=== PATIENT | male | born 1945 | race Caucasian/White ===

== ENCOUNTER 2023-11-20 07:30 | Outpatient (RCR) | payer MEDICARE, OTHER, SELFPAY | END 2023-12-18 09:49 | disposition home or self-care (01) | PROVIDERS: PCP Student in an Organized Health Care Education/Training Program; Visit Provider Student in an Organized Health Care Education/Training Program | DX: M54.50 Low back pain, unspecified (principal); G89.29 Other chronic pain; Z51.89 Encounter for other specified aftercare | CPT/HCPCS: 97110; 97140; 97161 ==

== ENCOUNTER 2024-07-22 09:15 | Outpatient (CLI) | payer MEDICARE, OTHER, SELFPAY | END 2024-07-22 09:16 | disposition home or self-care (01) | LOC: INJ CL 09:19 | PROVIDERS: PCP Student in an Organized Health Care Education/Training Program; Visit Provider Family Medicine | DX: M54.16 Radiculopathy, lumbar region (principal); M51.369 Other intervertebral disc degeneration, lumbar region without mention of lumbar back pain or lower extremity pain | CPT/HCPCS: 62323; J0702; Q9966 ==

== ENCOUNTER 2024-11-18 08:15 | Outpatient (RCR) | payer MEDICARE, OTHER, SELFPAY | END 2025-03-18 23:59 | disposition home or self-care (01) | PROVIDERS: PCP Student in an Organized Health Care Education/Training Program; Visit Provider Family Medicine | DX: M47.816 Spondylosis without myelopathy or radiculopathy, lumbar region (principal); M54.16 Radiculopathy, lumbar region; Z51.89 Encounter for other specified aftercare | CPT/HCPCS: 97110; 97140; 97162 ==

== ENCOUNTER 2025-06-06 20:18 | Emergency (ER) | payer MEDICARE, OTHER, SELFPAY ==
--- OUTSIDE RECORDS SUMMARY | 2015-02-10 03:28 | XMS_ITS | Continuity of Care Document ---
Author Organization [facility] Address [address] [place] [address] Phone Care Team Providers Care Med Surg Nurse Name Role Phone Luis CH PTKimberli Unavailable Unavailable Procedures Procedure Date Neuromuscular Re-education Manual Therapy Phys Therap Eval Neuromuscular Re-education Manual Therapy Mobility: Walking & Moving Around, Curre nt Mobility: Walking & Moving Around, Goal Manual Therapy Therapeutic Procedure Manual Therapy Therapeutic Procedure Neuromuscular Re-education Manual Therapy No Charge Therap 1/> Areas/15 Min; Exerc 06 Therap 1/> Area/15 Min; Balnc/ 06 Therap 1/> Areas/15 Min; Exerc 05 Therap 1/> Area/15 Min; Balnc/ 05 Applic Modal 1/> Areas; Ultras 05 Man Ther Tech-1/> Regions-ea 05 Therap 1/> Areas/15 Min; Exerc 05 Therap 1/> Area/15 Min; Balnc/ 05 Applic Modal 1/> Areas; Ultras 05 Therap 1/> Areas/15 Min; Exerc 05 Man Ther Tech-1/> Regions-ea 1 05 Applic Modal 1/> Areas; Ultras 05 Therap 1/> Areas/15 Min; Exerc 05 Man Ther Tech-1/> Regions-ea 1 05 Therap 1/> Areas/15 Min; Exerc 05 Therap 1/> Area/15 Min; Balnc/ 05 Therap 1/> Areas/15 Min; Exerc 05 Therap 1/> Area/15 Min; Balnc/ 05 Applic Modal 1/> Areas; Ultras 05 Therap 1/> Areas/15 Min; Exerc 05 Man Ther Tech-1/> Regions-ea 1 05 Therap 1/> Areas/15 Min; Exerc 05 Therap 1/> Area/15 Min; Balnc/ 05 Applic Modal 1/> Areas; Ultras 05 Therap 1/> Areas/15 Min; Exerc 05 Man Ther Tech-1/> Regions-ea 1 05 Applic Modal 1/> Areas; Ultras 05 Man Ther Tech-1/> Regions-ea 1 05 Applic Modal 1/> Areas; Ultras 05 Man Ther Tech-1/> Regions-ea 05 Therap Activities 1-- Ea 05 Inj Not Lytic-epidur; Cerv/tho 05 Epidurography Rad S&i Depomedrol 80mg Marcaine 30ml Lidocaine 50 Cc Omnipaque Up To 299 Mg Epidural Needle Loss Of Ressistance Syringe Epidural Tray Applic Modal 1/> Areas; Ultras 05 Therap 1/> Areas/15 Min; Exerc 05 Man Ther Tech-1/> Regions-ea 05 Applic Modal 1/> Areas; Ultras 05 Therap 1/> Areas/15 Min; Exerc 05 Man Ther Tech-1/> Regions-ea 05 Applic Modal 1/> Areas; Ultras 05 Therap 1/> Areas/15 Min; Exerc 05 Man Ther Tech-1/> Regions-ea 05 Applic Modal 1/> Areas; Ultras 05 Therap 1/> Areas/15 Min; Exerc 05 Man Ther Tech-1/> Regions-ea 05 Applic Modal 1/> Areas; Ultras 05 Therap 1/> Areas/15 Min; Exerc 05 Man Ther Tech-1/> Regions-ea 05 Phys Therap Eval Man Ther Tech-1/> Regions-ea 1 05 Offic/outpt E&m New Mod-hi 45 5 Advance Directives Directive Yes / No Effective Date File Name No Information Encounters Encounter Description Practice Location Reason(s) For Visit Diagnoses Date Provider Providers Copied on Encounter [facility], [address], [place], [place], [address], [place] tel:[phone] [facility] 7390 No Information Smith PT Kimberli. [address] [place], [place], [address], [place]. tel:[phone] Referring Provider: Gerry Salguero MD, [address] [place], [address]. tel:[phone] [facility], [address], [place], [place], [address], tel:[phone] [facility] 7390 No Information [facility] Kimberli. [address], [place], [place], [address], [place]. tel:[phone] Referring Provider: Gerry Salguero MD, [address] [place], [address]. tel:[phone] [facility], [address], [place], [place], [address], [place] tel:[phone] [facility] 7390 No Information 5 Luis CH Kimberli. [address], [place], [place], [id number], [place]. tel:[phone] Referring Provider: Gerry Salguero MD, [address] [facility], [place], [address]. tel:[phone] [facility], [address], [place], [place], [address], [place] tel:[phone] [facility] 7390 No Information 4 Mac Jeanine. [address], [address], [place], [place], [address], [place]. tel:[phone] Referring Provider: Gerry Salguero MD, [address] [facility], [place], [address]. tel:[phone] [facility], [address], [place], [place], [address], [place] tel:[phone] [facility] 7390 No Information 4 Melo Patrizia. [address], [address], [place], [place], [address], [place]. tel:[phone] Referring Provider: Gerry Salguero MD, [address] [facility], [place], [address]. tel:[phone] [facility], [address], [place], [place], [address], [place] tel:[phone] [facility] 7390 No Information 4 Mac Jeanine. [address], [address], [place], [place], [address], [place]. tel:[phone] Referring Provider: Gerry Salguero MD, [address] [facility], [place], [address]. tel:[phone] [facility], [address], [place], [place], [address], [place] tel:[phone] Zoila Marceloa [facility] 7390 No Information 4 Mac Solorzano. [address], [address], [place], [place], [address], [place]. tel:[phone] Referring Provider: Gerry Salguero MD, [address] [facility], [place], [address]. tel:[phone] [facility], [address], [place], [place], [address], [place] tel:[phone] [facility] No Information 6 No Information Referring Provider: Jack Watson MD, [address], [place], [address]. tel:[phone] [facility], [address], [place], [place], [address], [place] tel:[phone] [facility] No Information 5 No Information Referring Provider: Jack Watson MD, [address] [facility] [address], [place], [address]. tel:[phone] [facility], [address], [place], [place], [address], [place] tel:[phone] [facility] No Information 5 Norma Maxwell. [address], [address], [place], [place], [address], [place]. tel:[phone] Referring Provider: Jack Watson MD, [address] [facility] [address], [place], [address]. tel:[phone] [facility], [address], [place], [place], [address], [place] tel:[phone] [facility] No Information Dec-0 8-200 5 No Information Referring Provider: Jack Watson MD, [address] [facility] [facility] [address], [place], [address]. tel:[phone] [facility], [address], [place], [place], [address], [place] tel:[phone] [facility] No Information 7200 5 O Hotto Alissa. [address], [address], [place], [address], [place]. tel:[phone] Referring Provider: Jack Watson MD, [address] [facility] [address], [place], [address]. tel:[phone] [facility], [address], [place], [address], [place] tel:[phone] [facility] No Information 0 5 O Hotto Alissa. [address], [address], [place], [address], [place]. tel:[phone] Referring Provider: Jack Watson MD, [address] [facility] [address], [place], [address]. tel:[phone] [facility], [address], [place], [address], [place] tel:[phone] [facility] No Information 200 5 No Information Referring Provider: Jack Watson MD, [address] [facility] [address], [place], [address]. tel:[phone] [facility], [address], [place], [address], [place] tel:[phone] [facility] No Information 200 5 No Information Referring Provider: Jack Watson MD, [address] [facility] [address], [place], [address]. tel:[phone] [facility], [address], [place], [place], [address], [place] tel:[phone] [facility] No Information 6-200 5 O Hotto Alissa. [address], [address], [place], [address], [place]. tel:[phone] Referring Provider: Jack Watson MD, [address] [facility] [address], [place], [address]. tel:[phone] [facility], [address], [place], [place], [address], [place] tel:[phone] [facility] No Information 0-200 5 No Information Referring Provider: Jack Watson MD, [address] [facility] [address], [place], [address]. tel:[phone] [facility], [address], [place], [address], [place] tel:[phone] [facility] No Information 9-200 5 O Hotto Alissa. [address], [place], [address], [place]. tel:[phone] Referring Provider: Jack Watson MD, [address] [facility] [address], [place], [address]. tel:[phone] [facility], [address], [place], [address], [place] tel:[phone] [facility] No Information 2-200 5 O Hotto Alissa. [address], [facility] [address], [place], [address], [place]. tel:[phone] Referring Provider: Jack Watson MD, [address] [facility] [address], [place], [address]. tel:[phone] [facility], [address], [place], [address], [place] tel:[phone] [facility] No Information 6200 5 O Hotto Alissa. [address], [address], [place], [place], [address], [place]. tel:[phone] Referring Provider: DELMI LEONARD. [facility], [address], [place], [place], [address], [place] tel:[phone] [facility] No Information Sep-0 8-200 5 Yvon Garrett. [address], [place], [place], [address], [place]. tel:[phone] Referring Provider: Gerry Chaudhry, [address], [place], [address] . tel:[phone] [facility], [address], [place], [place], [address], [place] tel:[phone] [facility] No Information Sep-0 7-200 5 O Hotto Alissa. [address], [address], [place], [place], [address], [place]. tel:[phone] Referring Provider: Gerry Chaudhry, [address], [place], [address] . tel:[phone] [facility], [address], [place], [place], [address], [place] tel:[phone] [facility] No Information 1-200 5 O Hotto Alissa. [address], [address], [place], [place], [address], [place]. tel:[phone] Referring Provider: Gerry Chaudhry, [address], [place], [address] . tel:[phone] [facility], [address], [place], [place], [address], [place] tel:[phone] [facility] No Information 200 5 O Hotto Alissa. [address], [address], [place], [address], [place]. tel:[phone] Referring Provider: Gerry Chaudhry, [address], [place], [address] . tel:[phone] [facility], [address], [place], [place], [address], [place] tel:[phone] [facility] No Information 5 O Hotto Alissa. [address], [address], [place], [address], [place]. tel:[phone] Referring Provider: Gerry Chaudhry, [address], [place], [address] . tel:[phone] [facility], [address], [place], [place], [address], [place] tel:[phone] [facility] No Information 5 O Hotto Alissa. [address], [place], [address], [place]. tel:[phone] Referring Provider: REFERRAL SELF, DELMI. [facility], [address], [place], [place], [address], [place] tel:[phone] [facility] No Information 3200 5 O Hotto Alissa. [address], [address], [place], [address], [place]. tel:[phone] Referring Provider: REFERRAL SELF, DELMI. Offic/outpt E&m New Mod-hi 45 [facility], [address], [place], [place], [address], [place] tel:[phone] [facility] No Information 9-200 5 Yvon Garrett. [address], [place], [address], [place]. tel:[phone] Referring Provider: REFERRAL SELF, DELMI. Family History Family Member Type Diagnosis Age At Onset No Information Payers Payer name Insurance type Covered republican ID Authoriza tion(s) Medicare Part B [id number] [facility] [id number] Social History Type Description Quantity Date Captured Comments Sex Male Smoking Status No Information Chief Complaint And Reason For Visit No Information Reason For Referral Reason For Referral No Information History Of Present Illness Encounter Date Complaint History Of Prese nt Illness No Information Functional Status Date Functional Assessmen t No Information Instructions Date Instruction Additional Infor mation No Information Assessments Type Assessment Date No Information Patient Care Teams Name Effective Dates (start - stop) Status Members No Information
--- OUTSIDE RECORDS SUMMARY | 2025-06-06 20:20 | XMS_ITS | Clinical Summary ---
Author Organization [facility] Address [address] [place] [address] Care Team Providers Care Process Equipment Operator Name Role Phone Elsewhere, Pcp Primary Care Provider Unavailabl e Source Comments Patient records contain information from all sites at [facility]. For routine questions regarding patient records, call [phone] during business hours, M-F 8:00 AM - 5:00 PM Central Time. Record requests for emergency care only can be directed to [phone] at any time.[facility] Allergies Active AllergyReactionsCriticalityNoted DateCommentsBirchOther (see comments) 12/07/2023 other Medications MedicationSigDispense QuantityRefillsLast FilledStart DateEnd DateStatus cetirizine (ZyrTEC) 10 mg tablet Take 1 tablet by mouth every morning.02/02/2017Active acetaminophen (TYLENOL EXTRA STRENGTH ORAL) Take 2 tablets by mouth as needed. Pain.02/02/2017Active lisinopril (PRINIVIL,ZESTRIL) 10 mg tablet Take 1 tablet by mouth every morning.02/02/2017Active sildenafil (VIAGRA) 100 mg tablet Take 0.5 tablets by mouth as needed. Take 1 tablet approximately 1 hour before sexual activity; maximum 1 tablet per day.02/02/2017Active propafenone (RythmoL) 150 mg tablet Take 225 mg by mouth as needed. As needed for A-fib, does not take regularily. Active rosuvastatin (Crestor) 10 mg tablet Take 10 mg by mouth at bedtime.08/05/2023ctive cholecalciferol, vitamin D3, (cholecalciferol) 25 mcg (1,000 Unit) tablet Take 25 mcg by mouth daily.Active aspirin [address] tablet Take 81 mg by mouth daily.04/01/2023ctive diphenhydrAMINE (BenadryL) 25 mg capsule Take 25 mg by mouth every 4 (four) hours as needed.11/29/2022ctive ibuprofen 200 mg tablet Take 200 mg by mouth 3 (three) times a day as needed.11/29/2022ctive ketoconazole (Nizoral) 2 % cream Apply 1 Application topically 2 (two) times a day.09/10/2024tive loratadine (Claritin) 10 mg tablet Take 10 mg by mouth daily.09/14/2024tive finasteride (Proscar) 5 mg tablet TAKE ONE TABLET BY MOUTH ONE TIME DAILY 90 tablet 12/11/2024tive Active Problems ProblemNoted DateDiagnosed DateBenign Prostatic Hyperplasia Hypertrophy With Cedggqkounm36/04/2019 Overview (08/19/2018): Added automatically from request for surgery [id number] Wcmiugaukixk88/18/2017Arrhythmia Overview (09/03/2018): Paroxysmal a-fib, PVC's, PAC's - taking Toprol Resolved Problems ProblemNoted DateDiagnosed DateResolved DateHypertension NOS09/03/2018 Immunizations ImmunizationAdministration DatesNext DueInfluenza Split03/31/2016 Social History Tobacco UseTypesPacks/DayYears UsedDateSmoking Tobacco: NeverPassive Smoke Exposure: NeverSmokeless Tobacco: NeverAlcohol UseStandard Drinks/WeekCommentsNo 0 (1 standard drink = 0.6 oz pure alcohol)Caffeine - noneAHC UtilitiesAnswerDate RecordedIn the past 12 months has the [employer], gas, oil, or water [employer] threatened to shut off services in your home?12/09/2023Humiliation, Afraid, Rape, and Kick questionnaireAnswerDate RecordedWithin the last year, have you been afraid of your partner or ex-partner?No11/22/2022Within the last year, have you been humiliated or emotionally abused in other ways by your partner or ex-partner?No11/22/2022Within the last year, have you been kicked, hit, slapped, or otherwise physically hurt by your partner or ex-partner?No11/22/2022Within the last year, have you been raped or forced to have any kind of sexual activity by your partner or ex-partner?No11/22/2022Hunger Vital SignAnswerDate Recorded Within the past 12 months, you worried that your food would run out before you got the money to buymore.Never true12/09/2023Within the past 12 months, the food you bought just didn't last and you didn't have money to get more.Never true 12/09/2023RAPARE - TransportationAnswerDate RecordedIn the past 12 months, has lack of transportation kept you from medical appointments or from getting medications?No12/09/2023In the past 12 months, has lack of transportation kept you from meetings, work, or from getting things needed for daily living?No 12/09/2023Housing StabilityAnswerDate RecordedWhat is your living situation today?I have a steady place to live12/09/2023Sex and Gender InformationValueDate RecordedSex Assigned at ZazgkJeir09/20/2021 11:28 AM CDTLegal LaiDuvr5012/28/2016 9:25 AM CDTGender IgigvvdqEtal62/25/2018 2:16 PM CDTSexual OrientationStraight 04/11/2018 2:16 PM CDT Last Filed Vital Signs Vital SignReadingTime TakenCommentsBlood Kgyzuvti200/5404 12:15 PM CDT Fbiyw4872 12:20 PM GYWRwodonnmmpo61.5 ??C (97.7 ??F)10/01/2018 9:37 AM CDTRespiratory Gctf157710/01/2018 12:20 PM CDTOxygen Oizzibifjq36%10/01/2018 12:20 PM CDTInhaled Oxygen Concentration--Dvmzrb58.7 kg (180 lb 1.9 oz)10/01/2018 7:24 AM ICLOeivyy173.3 cm (5' 8.23)10/01/2018 7:24 AM CDTBody Mass Index27.2 10/01/2018 7:24 AM CDT Plan of Treatment Health MaintenanceDue DateLast DoneCommentsHepatitis C Dkocqlzad46/09/1946Office Visit for Blood Pressure Check / Re-check1946RSV vaccine - (32-36 weeks) or 50+ years (1 - 1-dose 75+ series)2Depression Screening (Annual PHQ-2)06/18/2024Fall Risk Screen (Annual)5Creatinine Level (Kidney Function Test)/08/2023, 07/11/2023, 11/27/2022, Additional history existsPotassium Level/08/2023, 06/22/2022, 03/28/2022, Additional history existsSodium Level/08/2023, 06/22/2022, 03/28/2022, Additional history existsCOVID-19 Vaccine ( season) /12/2021, 09/16/2021, 04/06/2021, Additional history existsInfluenza Vaccine (#1)/, 05/11/2021, 03/18/2019, Additional history existsDTaP,Tdap,and Td Vaccines (4 - Td or Tdap)/06/2020, 11/30/2018, 12/27/2012, Additional history existsPneumococcal vaccine (50+ years)Szrucudta44/20/2015, 12/08/2011Zoster QhszdyduDzyolbxho38/31/2019, 03/18/2019, 06/22/2012IPV VaccinesAged OutNo longer eligible based on patient's age to complete this topic Procedures Procedure NamePriorityDate/TimeAssociated DiagnosisCommentsCREATININE WITH EGFR, S/SKtfihix74/12/2023 12:19 PM CDT Hematuria Gross SODIUM, S/MDtwopcx75/18/2017 2:36 PM CDT POTASSIUM, S/EOchdmdl53/18/2017 2:36 PM CDT from Last 3 Months or Most Recently Relevant to Health Maintenance Results * Creatinine with Estimated GFR (11/27/2022 12:19 PM CDT)ComponentValueRef Range Test MethodAnalysis TimePerformed AtPathologist SignatureCreatinine0.880.74 - 1.35 mg/dL11/27/2022 1:37 PM CDTDTLEstimated GFR (eGFR)89>=60 mL/min/BSA 11/27/2022 1:37 PM CDTDTLComment: Estimated GFR calculated using the 2020 CKD_EPI creatinine equation. Specimen (Source)Anatomical Location / LateralityCollection Method / Volume Collection TimeReceived TimeBlood (Blood, Venous)11/27/2022 12:19 PM CDT 11/27/2022 12:53 PM CDT Narrative Authorizing ProviderResult TypeResult StatusElise Andres Olvera P.A.-C.LAB BLOOD ADD-ONFinal ResultPerforming OrganizationAddressCity/State/ZIP CodePhone Number [facility] [address] [place] [address], [facility] [address] [place] [address] * Sodium (02/02/2017 2:36 PM CDT)ComponentValueRef RangeTest MethodAnalysis Time Performed AtPathologist SignatureSodium, [id number] - 145 MMOL/[facility]ITALSpecimen (Source)Anatomical Location / LateralityCollection Method / VolumeCollection TimeReceived Time02/02/2017 2:36 PM CDT02/02/2017 2:36 PM CDT Narrative Authorizing ProviderResult TypeResult StatusBroleksandr Trejo M.D., M.H.P.E.LAB BLOOD ADD-ONFinal ResultPerforming OrganizationAddressCity/State/ZIP CodePhone Number [facility] [address] [place] [address], [facility] * Potassium (02/02/2017 2:36 PM CDT)ComponentValueRef RangeTest MethodAnalysis TimePerformed AtPathologist SignaturePotassium, S4.23.6 - 5.2 MMOL/[facility]ITALSpecimen (Source)Anatomical Location / LateralityCollection Method / VolumeCollection TimeReceived Time 02/02/2017 2:36 PM CDT02/02/2017 2:36 PM CDT Narrative Authorizing ProviderResult TypeResult StatusKaity Trejo M.D., M.H.P.E.LAB BLOOD ADD-ONFinal ResultPerforming OrganizationAddressCity/State/ZIP CodePhone Number [facility] [address] from Last 3 Months or Most Recently Relevant to Health Maintenance Insurance * Guarantor: Henry Mcdonald Jr.Account TypeRelation to PatientDate of PhoneBilling AddressPersonal/OdhkdhPjvw43/09/1946 [facility] [place] [address] Care Teams Team MemberRelationshipSpecialtyStart DateEnd Date Elsewhere, Pcp PCP - GeneralInternal Medicine12/07/23
--- OUTSIDE RECORDS SUMMARY | 2025-06-06 20:20 | XMS_ITS | Clinical Summary ---
Author Organization [employer] [facility] Address [address] [place] [address] Care Team Providers Care Lidding Machine Operator Name Role Phone Ernestina Kendrick MD Unavailable Antoinette Erickson Unavailable [phone] Kylah Arias DO Primary Care Provider [phone] Allergies Active AllergyReactionsCriticalityNoted DateCommentsBirchRunny Nose05/03/2018 House DustRunny Nose10/11/2016Pollen ExtractsRunny Nose10/11/2016 Medications MedicationSigDispense QuantityRefillsLast FilledStart DateEnd DateStatus acetaminophen (TYLENOL EXTRA STRGTH) 500 mg tablet Take 1 Tablet (500 mg) by mouth every 6 hours if needed. Max acetaminophen dose: 4000mg in 24 hrs.ctive cholecalciferol, Vitamin D3, (Vitamin D-3) 5,000 unit tab tablet Take by mouth once daily.Active aspirin chewable 81 mg chewable tablet Chew 1 Tablet (81 mg) by mouth once daily with a meal.ctive diphenhydrAMINE (BENADRYL) 25 mg capsule Take 25 mg by mouth.11/29/2022ctive sildenafil citrate (VIAGRA) 100 mg tablet Indications:ED (erectile dysfunction) of organic originTAKE 1 TABLET ONCE DAILY IF NEEDED FOR ERECTILE DYSFUNCTION. TAKE 30 MINUTES TO 4 HOURS BEFORE SEXUAL ACTIVITY. MAX 100 MG PER 24 HOURS 8 Tablet ctive finasteride 5 mg tablet Indications:Benign prostatic hyperplasia with urinary obstructionTake 1 Tablet (5 mg) by mouth once daily in the morning. 90 Tablet 5Active rosuvastatin 10 mg tablet Indications:Hyperlipidemia, unspecified hyperlipidemia typeTake 1 Tablet (10 mg) by mouth at bedtime. 90 Tablet 5Active lisinopriL 10 mg tablet Indications:HypertensionTake 1 Tablet (10 mg) by mouth once daily. 90 Tablet 5Active loratadine 10 mg tablet Indications:Chronic sinusitis, unspecified locationTAKE ONE TABLET BY MOUTH ONE TIME DAILY 90 Tablet 5Active propafenone (RYTHMOL) 300 mg tablet Indications:PAF (paroxysmal atrial fibrillation) (HC)Take one tablet per day NEEDED for afib episodes. 10 Tablet 5Active apixaban (Eliquis) 5 mg tablet Indications:Paroxysmal atrial fibrillation (HC)Take 1 Tablet (5 mg) by mouth two times daily. Start 21 days before the ablation and for 1 month after. 180 Tablet 5Active Active Problems ProblemNoted DateDiagnosed AomgFmiyfsmu07/09/2024Generalized anxiety disorder 05/21/2023Sensorineural hearing loss, ramnxopuu25/01/2022Other specified neoplasms of uncertain behavior of lymphoid, hematopoietic and related tissue 09/16/2021hronic lymphocytic gvdayjef50/01/2022 Overview (07/27/2023): Jul 13, 2023 Entered By: VERNA BYNUM Comment: [facility] f/u Wlfxfucwdp93/05/2021 Overview (04/22/2021): Paroxysmal a-fib, PVC's, PAC's - taking Toprol Hyperplastic colon polyp06/01/2016 Overview (06/01/2016): Colonoscopy 05/2016 polyp, no follow up needed Benign prostatic hyperplasia with urinary rsmrinegrky68/16/2016 Overview (04/22/2021): Added automatically from request for surgery [id number] Lateral epicondylitis of right elbow11/04/20136972Aywsgajethyo73/23/2013Paroxysmal atrial irduaohcjzlw07/11/2012 Overview (06/02/2021): S/p cardiac ablation. Encounters DateTypeDepartmentCare QikgLowukussgkg44/01/2025Telephone [facility] [place] [address] [place] [phone] Jose Alfredo Fung MD Hazcvnc6905/04/2025Telephone [facility] [address] [place] [phone] Sam Velasquez MD Medication Management; Linppkdxy68/13/2025Telephone [facility] [address] [place] [address] Sam Velasquez MD Appointment Request; EP Tvvjuyovn44/12/2025 3:30 PM CSTOffice Visit [facility] [address] [place] [address] Sam Velasquez MD CV Electrophysiology Est (Annual follow up, had about 10 afib episodes since being seen last year. Longest lasting 2.5 hours. Takes propafenone as needed. ) 04/28/2025 9:00 AM CSTOffice Visit [facility] [address] [place] [address] Angela Blankenship MD Follow Up04/28/2025 7:33 AM COMPUTER PROGRAMMING MANAGER - 04/28/2025 11:59 PM CSTHospital Encounter [facility] [address] [place] [address] Angela Blankenship MD Chronic lymphocytic leukemia (HC)04/28/20253499Jwabec39/10/2025Medical Messaging [facility] [address] [place] [address] Kylah Arias, DO Recent visit hand edwxbmxm40/10/2025Orders Only [facility] [address] [place] [address] He, Angela Limon MD <No scans attached>04/24/2025Travelfrom Last 3 Months Immunizations ImmunizationAdministration DatesNext DueCOVID-19 vaccine (Pfizer-BioNTech 30mcg/0.3mL) 12YO+ MALCOLM-SUCROSE PF, MDV04/2COVID-19 vaccine (Pfizer- BioNTech 30mcg/0.3mL) PF, MDV01,06/22/2020Influenza RIV4 (Age 18+ Years) PRESERV FREE03/18/2019Influenza, High-dose Xuxudqhrjcq05/30/2018,04/21/2016, 03/31/2016,04/08/2015Influenza, High-dose Quadrivalent Dsdncahzxce09/22/2022 Influenza, IIV3 (Age >=3 years)05/09/2013,06/05/2011,05/06/2010,03/18/2004, 07/14/2000Influenza, NHZ553/,03/05/2014Influenza, Inactivated IIV3 (Age 65+ Years) Preserv Free04/18/2017Pneumococcal Poly,23-Valent (Pneumovax) 12/08/2011Pneumococcal conj 13-Valent (Prevnar 13)08/07/2014Td (Age >=7 Years) 03/18/2004Tdap106/18/2020,11/30/2018,12/27/2012Tuberculin (PPD)04/04/2019, 03/31/2019,12/27/2017Zoster (Shingrix-RZV, recombinant)06/17/2019,03/18/2019 Zoster (Zostavax-ZVL, live)06/22/2012 Family History Medical HistoryRelationNameCommentsHypertensionFatherdeceased/ age 73Stroke FatherOtherMotherALS/ age 76RelationNameStatusCommentsFatherMother Social History Tobacco UseTypesPacks/DayYears UsedDateSmoking Tobacco: NeverSmokeless Tobacco: Never Tobacco Cessation:Counseling Given: Yes Comments:no exposure Alcohol UseStandard Drinks/WeekCommentsYes0 (1 standard drink = 0.6 oz pure alcohol)occasionalPHQ-2AnswerDate RecordedPHQ-2 TOTAL FONTY396Social ConnectionsAnswerDate RecordedDo you often feel lonely or isolated from those around you?Financial Resource StrainAnswerDate RecordedDifficulty of Paying Living Dicsbvuv415/07/2025Difficulty of Paying Living ExpensesNot on file 07/25/2024Food InsecurityAnswerDate RecordedDo you worry your food will run out before you are able to buy more?Transportation NeedsAnswerDate RecordedDoes lack of transportation keep you from medical appointments?1 07/25/2024Does lack of transportation keep you from work, meetings or getting things that you need?Housing StabilityAnswerDate RecordedWhat is your housing situation today?UtilitiesAnswerDate RecordedDo you have trouble paying for utilities (for example, heat, electricity, water, phone)?1 07/25/2024Sex and Gender InformationValueDate RecordedSex Assigned at BirthMale 09/03/2020 7:34 PM CDTLegal CqxWkxd5107/01/2012 5:47 AM CSTGender IdentityMale 09/03/2020 7:34 PM CDTSexual KkkacumnagiAlubjrzx31/23/2021 9:40 AM CSTOccupation IndustryJob Start DateJob End 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 for chronic pain clinicNot on fileNot on fileNot on fileNot on fileNot on fileNot on fileNot on file Last Filed Vital Signs Vital SignReadingTime TakenCommentsBlood Dvyqndtv803/6611 3:26 PM COMPUTER PROGRAMMING MANAGER Sghqe108904/29/2025 3:26 PM LESJiyucbuiiua28.2 ??C (97.1 ??F)04/28/2025 9:00 AM CSTRespiratory Awhe830111/21/2023 10:54 AM CDTOxygen Dvadxjyxqj43%04/29/2025 3:26 PM CSTInhaled Oxygen Concentration--Qnbbkk63.7 kg (178 lb)04/29/2025 3:26 PM COMPUTER PROGRAMMING MANAGER Atrfjy584 cm (5' 8.5)04/29/2025 3:26 PM CSTBody Mass Index26.6704/29/2025 3:26 PM COMPUTER PROGRAMMING MANAGER Plan of Treatment DateTypeDepartmentCare Team (Latest Contact Info)Rlyweuifuvd73/06/2026 12:30 PM CSTAppointment [facility] [address] [place] [address] Sam Velasquez MD [address] [address] 08/03/2025 10:15 AM CSTOrders Only [facility] [address] [place] [address] [place], [place] 10/14/2025 8:00 AM CDTOffice Visit [facility] [address] [place] [address] Sam Velasquez MD [address] [address] 10/19/2025 9:20 AM CDTOffice Visit [facility] [address] [address] 10/19/2025 10:30 AM CDTOffice Visit [facility] [address] [place] [address] La Bright PA [address] [place] [address] Health MaintenanceDue DateLast DoneCommentsRSV vaccine for adults or (1 - 1-dose 75+ series)2COVID-19 vaccine series ( season) 51, 09/16/2021, 04/06/2021, Additional history existsInfluenza Vaccine (#1)5107/11/2020, 03/18/2019, 04/16/2018, Additional history existsDepression screening for age 12+6011/04/2024, 10/30/2023, 09/26/2022, Additional history existsMedicare Wellness for age 65+11/05/2025 11/04/2024, 10/30/2023, 09/26/2022, Additional history existsBMI (ht and wt on same day) for age 18+6106/29/2024, 04/28/2025, 11/04/2024, Additional history existsTetanus zceftax93/06/2020, 11/30/2018, 12/27/2012, Additional history existsPneumococcal series for age 50+Kqzxayrbe12/20/2015, 12/08/2011Hepatitis C screening for age 18-58Ukhbpvqid69/28/2018Zoster (shingles) series for age 50+Qpiztotnw51/31/2019, 03/18/2019, 06/22/2012 Hepatitis B series for 19+Aged OutNo longer eligible based on patient's age to complete this topic Procedures Procedure NamePriorityDate/TimeAssociated DiagnosisCommentsEKG 12 LEADRoutine 04/29/2025 3:24 PM COMPUTER PROGRAMMING MANAGER Paroxysmal atrial fibrillation (HC) CWS PATH REVIEW COHJGPXSEVBjxsr58/11/2025 7:39 AM COMPUTER PROGRAMMING MANAGER Chronic lymphocytic leukemia (HC) RED CELL DXZQXYNWAUVaras57/11/2025 7:39 AM COMPUTER PROGRAMMING MANAGER Chronic lymphocytic leukemia (HC) PLATELET JTRUOTXZOexmc18/11/2025 7:39 AM COMPUTER PROGRAMMING MANAGER Chronic lymphocytic leukemia (HC) MANUAL NYIDSAVAZXBQArlrd22/11/2025 7:39 AM COMPUTER PROGRAMMING MANAGER Chronic lymphocytic leukemia (HC) CBC WITH AUTO NMYQVIMGRCLDCnosh88/11/2025 7:39 AM COMPUTER PROGRAMMING MANAGER Chronic lymphocytic leukemia (HC) CBC WITH AUTO PZYCLNBZFDMNBjrzh33/11/2025 7:39 AM COMPUTER PROGRAMMING MANAGER Chronic lymphocytic leukemia (HC) ANTI UGIBjmtlck11/28/2018 8:35 AM COMPUTER PROGRAMMING MANAGER Need for hepatitis C screening test from Last 3 Months or Most Recently Relevant to Health Maintenance Results * EKG 12 LEAD (04/29/2025 3:24 PM COMPUTER PROGRAMMING MANAGER)ComponentValueRef RangeTest MethodAnalysis TimePerformed AtPathologist SignatureInterpretationSinus bradycardia Otherwise normal ECG When compared with ECG of 09-Apr-2024 14:17, No significant change was found Ventricular Suhj37PPAJlykse Hxhu81HHZA-W Flhzluss547auHVT Bibzgxjt87cuLY847vpBJu 379msP Obyb97ywhubrvU Qnzo78hxdbivpO Brlm18yciyfftFxgvjeya (Source)Anatomical Location / LateralityCollection Method / VolumeCollection TimeReceived Time 04/29/2025 3:24 PM CST04/29/2025 5:15 PM COMPUTER PROGRAMMING MANAGER Narrative Authorizing ProviderResult TypeResult StatusSam Velasquez MDEKG ORDFinal Result * CWS PATH REVIEW HEMATOLOGY (04/28/2025 7:39 AM COMPUTER PROGRAMMING MANAGER)ComponentValueRef RangeTest MethodAnalysis TimePerformed AtPathologist SignaturePATH COMMENTReviewed 05/01/2025 12:33 PM CSTIN[facility] LABORATORYCENTRAL LABORATORYComment: Reviewed by Inez Burgos MT, MS (ASCP) on 04/30/2025Specimen (Source) Anatomical Location / LateralityCollection Method / VolumeCollection Time Received TimeBloodBLOOD SPECIMEN / UnknownVenipuncture / Jcjbqrx2004/28/2025 7:39 AM CST04/28/2025 7:46 AM COMPUTER PROGRAMMING MANAGER Narrative Authorizing ProviderResult TypeResult StatusAngela Blankenship MDLABORATORYFinal ResultPerforming OrganizationAddressCity/State/ZIP CodePhone Number [facility]ORY[facility] [address] [place] [address], * (ABNORMAL) CBC WITH AUTO DIFFERENTIAL (04/28/2025 7:39 AM COMPUTER PROGRAMMING MANAGER)ComponentValue Ref RangeTest MethodAnalysis TimePerformed AtPathologist SignatureWHITE BLOOD COUNT59.3(HH)4.5 - 11.0 thou/cu mm04/28/2025 8:30 AM [facility]-CENTRAL LABORATORYRED BLOOD COUNT4.424.30 - 5.90 mil/cu mm 04/28/2025 8:30 AM [facility] LABORATORYHEMOGLOBIN 13.4(L)13.5 - 17.5 g/dL04/28/2025 8:30 AM [facility] NEFDXRDESBJOWJFPIWYP53.337.0 - 53.0 %04/28/2025 8:30 AM [facility] ZDBMKPQEQJOPS4512 - 100 fL04/28/2025 8:30 AM [facility] BOGMIXFCCZGEA14.326.0 - 34.0 pg04/28/2025 8:30 AM [facility] DGTGZPAIFKAWIX66.432.0 - 36.0 g/dL 04/28/2025 8:30 AM [facility] AQVQJLXIMCTOW26.811.5 - 15.5 %04/28/2025 8:30 AM [facility] LABORATORY PLATELET LXLMV278331 - 440 thou/cu mm04/28/2025 8:30 AM [facility] DFLAHKZOHABZV83.56.5 - 11.0 fL04/28/2025 8:30 AM [facility] LABORATORYNRBC0.0%04/28/2025 8:30 AM [facility] LABORATORYABS NRBC0.0thou /cu mm04/28/2025 8:30 AM [facility] LABORATORYSpecimen (Source)Anatomical Location / LateralityCollection Method / VolumeCollection TimeReceived Time BloodBLOOD SPECIMEN / UnknownVenipuncture / Ctrllxe7104/28/2025 7:39 AM COMPUTER PROGRAMMING MANAGER 04/28/2025 7:46 AM COMPUTER PROGRAMMING MANAGER Narrative Authorizing ProviderResult TypeResult StatusFiraina Blankenship MDHEMATOLOGYFinal ResultPerforming OrganizationAddressCity/State/ZIP CodePhone Number [facility] [address] [place] [address], * RED CELL MORPHOLOGY (04/28/2025 7:39 AM COMPUTER PROGRAMMING MANAGER)ComponentValueRef RangeTest Method Analysis TimePerformed AtPathologist SignatureRBC COMMENTRBC morphology appears normalRBC morphology appears normal, RBC morphology within normal limits for newborns.04/28/2025 8:30 AM [facility]ST[facility]-CENTRAL LABORATORYSpecimen (Source)Anatomical Location / LateralityCollection Method / VolumeCollection TimeReceived TimeBloodBLOOD SPECIMEN / UnknownVenipuncture / Gslzuuo7404/28/2025 7:39 AM CST04/28/2025 7:46 AM COMPUTER PROGRAMMING MANAGER Narrative Authorizing ProviderResult TypeResult StatusAngela Blankenship MDHEMATOLOGYFinal ResultPerforming OrganizationAddressCity/State/ZIP CodePhone Number [facility] [address] * PLATELET ESTIMATE (04/28/2025 7:39 AM COMPUTER PROGRAMMING MANAGER)ComponentValueRef RangeTest Method Analysis TimePerformed AtPathologist SignaturePLATELET ESTIMATEAdequate Adequate, No kktdyjcq53/11/2025 8:30 AM [facility] LABORATORYSpecimen (Source)Anatomical Location / LateralityCollection Method / VolumeCollection TimeReceived TimeBloodBLOOD SPECIMEN / UnknownVenipuncture / Qukjenr8404/28/2025 7:39 AM CST04/28/2025 7:46 AM COMPUTER PROGRAMMING MANAGER Narrative Authorizing ProviderResult TypeResult StatusAngela Blankenship MDHEMATOLOGYFinal ResultPerforming OrganizationAddressty/State/ZIP CodePhone Number [facility] [address] * (ABNORMAL) MANUAL DIFFERENTIAL (04/28/2025 7:39 AM COMPUTER PROGRAMMING MANAGER)ComponentValueRef Range Test MethodAnalysis TimePerformed AtPathologist Signature% NEUTROPHILS7.0% 04/28/2025 8:30 AM [facility]-CENTRAL LABORATORY% LYMPHOCYTES 90.0%04/28/2025 8:30 AM [facility]AL LABORAT[facility]% MONOCYTES3.0%04/28/2025 8:30 AM [facility]AL LAB[facility]AT[facility] % EOSINOPHILS0.0%04/28/2025 8:30 AM [facility]EN[facility]AL LAB[facility]% BASOPHILS0.0%04/28/2025 8:30 AM [facility]- CENTRAL LABORATORYNEUTROPHILS ABSOLUTE4.21.7 - 7.0 thou/cu mm04/28/2025 8:30 AM [facility] LABORATORYLYMPHOCYTES DCZLENIG49.4(H) 0.9 - 2.9 thou/cu mm04/28/2025 8:30 AM [facility]-CENTRAL LABORATORYMONOCYTES ABSOLUTE1.8(H)<0.9 thou/cu mm04/28/2025 8:30 AM [facility] LABORATORYEOSINOPHILS ABSOLUTE0.0<0.5 thou/cu mm 04/28/2025 8:30 AM [facility] LABORATORYBASOPHILS ABSOLUTE0.0<0.3 thou/cu mm04/28/2025 8:30 AM [facility] CENTRAL LABORATORYSpecimen (Source)Anatomical Location / LateralityCollection Method / VolumeCollection TimeReceived TimeBloodBLOOD SPECIMEN / Unknown Venipuncture / Iufmwak9504/28/2025 7:39 AM CST04/28/2025 7:46 AM COMPUTER PROGRAMMING MANAGER Narrative Authorizing ProviderResult TypeResult StatusFiraina Blankenship MDHEMATOLOGYFinal ResultPerforming OrganizationAddressCity/State/ZIP CodePhone Number [facility] [address] [place] [address], * ANTI HCV [41403.2] (05/15/2018 8:35 AM COMPUTER PROGRAMMING MANAGER)ComponentValueRef RangeTest Method Analysis TimePerformed AtPathologist SignatureHEPATITIS C ANTIBODYNon-Reactive Non-Gllctaki81/28/2018 5:07 PM [facility] Comment:Antibodies to HCV not detected; does not exclude the possibility of exposure to HCV.Specimen (Source)Anatomical Location / LateralityCollection Method / VolumeCollection TimeReceived TimeBloodBLOOD SPECIMEN / Unknown Venipuncture / Hwgyclt1105/15/2018 8:35 AM CST05/15/2018 8:40 AM COMPUTER PROGRAMMING MANAGER Narrative Authorizing ProviderResult TypeResult StatusDavid Chepe Salguero MDSEND OUTSFinal ResultPerforming OrganizationAddressty/State/ZIP CodePhone Number [facility] [address] from Last 3 Months or Most Recently Relevant to Health Maintenance Insurance MemberSubscriberPlan / Payer (Effective 2020-Present)Name:Henry Mcdonald Jr. Relation to Subscriber:EmployeeName:[employer] Date of :1999 (Home) Address: [address] [place] [address] Payer ID:Not on file Group ID:Not on file Type:Not on file Address: [address] [place] [address] * Guarantor: Henry Mcdonald Jr.Account TypeRelation to PatientDate of BirthPhone Billing VxnrxdgZedeiuPcuw47/09/1946 [address] [place] [address] Advance Directives TypeDate RecordedPatient RepresentativeExplanationHealthcare Directive01/27/2013 10:22 AMAMSSM [facility], 03/04/2010Healthcare Directive * Full Code (Latest Code Status on File) Date ActivatedDate FufisehpnioAouvqdcs81/7/2021 2:44 PM05/25/2021 1:56 PMQuestion AnswerCommentsCode Status Discussion:* Not Discussed Care Teams Team MemberRelationshipSpecialtyStart DateEnd Date Kylah Arias DO [address] [place] [id number] PCP - GeneralFamily Practice09/23/20 Ernestina Kendrick MD Ophthalmology Surgery12/08/11 Antoinette Erickson AuD Audiology01/10/13
[2025-06-06 20:31] VITALS: BP 169/93; PULSE 97; RESP 18; TEMP 36.7; O2SAT 97; BMI 28.1
--- NOTE | 2025-06-06 22:24 | ED.FALL ---
HPI - Fall General Time Seen by Provider: 22:24 Date Seen: 06/06/25 Chief Complaint: Fall/Minor Trauma Stated Complaint: L side Flan Pain Time Seen by Provider: 06/06/25 21:29 Source: patient and RN notes reviewed Mode of arrival: ambulatory Limitations: no limitations History of Present Illness HPI Narrative: This 79-year-old male is ambulatory into the ED with concerns of left flank/lower chest wall pain after a fall yesterday. He was taking his dog for a walk yesterday, slipped and fell on the ice. He believes he landed on his left lower back and left side. Here originally really did not have too much discomfort. He did not hit his head, there was no loss of consciousness. He was somewhat sore with change of positions, coughing but not just regular breathing. He went to cross his legs, crosses left leg over his right and that significantly increased his pain, he felt it made him going to muscle spasm today. He is not noting any nausea vomiting, no abdominal pain. He started on Eliquis on the 02 of June for an upcoming ablation on June 23. He also has CLL. He was worried about bleeding from being on the Eliquis. He also has a history of atrial fibrillation, hypertension. He has no pain going down into his legs, when he crossed his left leg it actually caused left flank and left chest wall spasm and discomfort. Related Data Home Medications ?Medication ?Instructions ?Recorded ?Confirmed aspirin 81 mg tablet,delayed 81 mg PO QDAY 04/25/23 04/25/23 release (Adult Aspirin Regimen) diphenhydramine HCl 25 mg tablet 25 mg PO QHS PRN 04/25/23 04/25/23 (Benadryl Allergy) lisinopril 10 mg tablet 10 mg PO QDAY 04/25/23 04/25/23 rosuvastatin 10 mg tablet (Crestor) 10 mg PO QDAY 04/25/23 04/25/23 Previous Rx's ?Medication ?Instructions ?Recorded albuterol sulfate 90 mcg/actuation 2 puff inhalation Q4-6H PRN 04/25/23 aerosol inhaler shortness of breath or wheezing #8.5 grams azithromycin 250 mg tablet See Rx Instructions PO .COMPLEX #6 04/25/23 tabs benzonatate 200 mg capsule 200 mg PO QHS PRN cough #14 caps 04/25/23 hydrocodone 5 mg-acetaminophen 325 1 tab PO HS PRN pain #7 tabs 06/07/25 mg tablet Allergies Allergy/AdvReac Type Severity Reaction Status Date / Time No Known Drug Allergies Allergy Verified 04/25/23 08:56 Review of Systems Status of ROS: Reports: 6 or more systems reviewed and unremarkable except as noted in History and below [facility] Medical History Atrial fibrillation ?I48.91 - Unspecified atrial fibrillation (ICD-10) Surgical History S/P ablation of atrial fibrillation ?Z98.890 - Other specified postprocedural states (ICD-10) ?Z86.79 - Personal history of other diseases of the circulatory system (ICD-10) Social History Smoking Status: Never smoker Do you use any of these nicotine containing products: None Second hand tobacco smoke exposure: No How often do you have a drink containing alcohol: never AUDIT-C Alcohol total score: 0 Non-prescribed substance use: denies use Exam Const: Vital Signs, click to edit/add: Vital Signs - 24 hr 06/06/25 20:31 06/06/25 22:46 06/06/25 22:49 Temperature 98.0 F Pulse Rate [Pulse Oximeter] 97 68 Respiratory Rate 18 18 Blood Pressure [Ri ght Upper Arm] 169/93 H 165/89 H Pulse Oximetry 97 97 97 Oxygen Delivery Me thod Room Air Room Air This 79-year-old male is lying in bed in exam room 3, he is alert, interactive, no apparent distress when resting. He does seem to have some discomfort with position changes. Inspection of his back and chest reveal no ecchymosis, no traumatic change. He has no midline tenderness of his neck, neck is full range of motion. No midline tenderness over the rest of his back. He does have tenderness over the left lower chest wall and into the left flank area but there is no ecchymosis or bruising, again no traumatic change noted. Lungs are clear, good air entry, no wheezing or crackles, no tachypnea, no accessory muscle use. There is no crepitus of the chest wall. He has left CVA tenderness. On palpation of his abdomen, he does have some mild discomfort on palpation of the left upper quadrant but no rebound or guarding, no masses noted. Abdominal exam benign elsewhere without any tenderness. Documenting provider has reviewed patient's vital signs: yes Course Course ED Course: We certainly can manage muscle spasm and pain but we need to rule out significant traumatic pathology like intra-abdominal bleeding, rib fractures, lung complications from chest wall trauma. He is understanding of my request to do chest abdomen pelvis with IV contrast to look at these very issues. Will do some basic labs on him as well. If we have no concerning issues we will certainly discuss plan for pain management and symptom control for him. Right now he is stable, not requesting anything at this time, interested in seeing the imaging results. Reevaluation(s) Time of Reevaluation #1: 00:08 Reevaluation #1: Have reviewed his CT findings with him, he has a nondisplaced left 9th rib fracture. His hemoglobin is good at 13.6, reviewed his white blood count. He had non incidental findings, we briefly went over these, he was given a copy of his CT. We did discuss follow-up for the pulmonary nodules and repeat imaging if felt necessary or needed after discussion with his primary provider. We had a discussion about pain management, he had visual hallucinations with tramadol before. He would like to stay away from oxycodone, really does not want to use that. He has tolerated Vicodin in the past with a neck injury, had no problems with that. We unfortunately have no narcotics outside of tramadol in [facility] at this time. Will order 1 tablet of Vicodin 5/325, will send this home with him to take tonight and then send additional Vicodin in for nocturnal pain management. During the day, he will use Tylenol 1000 mg twice, the Vicodin at nighttime to help with sleep. He is aware of splinting technique, we did review that. We discussed signs and symptoms for return for complications of rib fractures. Vital Signs Vital signs: Initial Vital Signs Temperature 98.0 F 06/06/25 20:31 Temperature Source Temporal Artery Scan 06/06/25 20:31 Pulse Rate 97 06/06/25 20:31 Pulse Rhythm Regular 06/06/25 20:31 Respiratory Rate 18 06/06/25 20:31 Blood Pressure 169/93 H 06/06/25 20:31 Blood Pressure Mean 118 H 06/06/25 20:31 Blood Pressure Position Standing 06/06/25 20:31 Pulse Oximetry 97 06/06/25 20:31 Oxygen Delivery Method Room Air 06/06/25 20:31 Vital Signs Temperature 98.0 F 06/06/25 20:31 Pulse Rate 97 06/06/25 20:31 Respiratory Rate 18 06/06/25 20:31 Blood Pressure 169/93 H 06/06/25 20:31 Pulse Oximetry 97 06/06/25 20:31 Oxygen Delivery Method Room Air 06/06/25 20:31 Temperature 98.0 F 06/06/25 20:31 Pulse Rate 68 06/06/25 22:49 Respiratory Rate 18 06/06/25 22:49 Blood Pressure 165/89 H 06/06/25 22:49 Pulse Oximetry 97 06/06/25 22:49 Oxygen Delivery Method Room Air 06/06/25 22:49 MDM - Fall Lab Data Attestation: I reviewed the patient's lab results. Labs: Lab Results 06/06/25 Range/Units 22:49 WBC 67.88 H* (4.50-11.00) K/uL RBC 4.33 (4.30-5.90) m/uL Hgb 13.6 (13.5-17.5) gm/dL Hct 40.2 (37.0-53.0) % MCV 93 (80-100) fL MCH 31 (26-34) pg MCHC 34 (32-36) gm/dL RDW Coeff of Joseph 13.7 (11.5-15.5) % Plt Count 198 (140-440) K/uL Neut % (Auto) Not Reportable Lymph % (Auto) Not Reportable [place] % (Auto) Not Reportable Eos % (Auto) Not Reportable Baso % (Auto) Not Reportable Neut # (Auto) Not Reportable Lymph # (Auto) Not Reportable [place] # (Auto) Not Reportable Eos # (Auto) Not Reportable Baso # (Auto) Not Reportable Neutrophils % (Manual) 9.0 L (42.0-72.0) % Lymphocytes % (Manual) 70.0 H (20.0-44.0) % Monocytes % (Manual) 17.0 H (0-11) % Eosinophils % (Manual) 2.0 (0.0-7.0) % Basophils % (Manual) 2.0 (0.0-3.0) % Abs Neuts (Manual) 6.10 (1.70-7.00) K/uL Lymphocytes # (Manual) 47.50 H (0.90-2.90) K/uL Monocytes # (Manual) 11.50 H (0.00-0.90) K/uL Eosinophils # (Manual) 1.40 H (0.00-0.50) K/uL Basophils # (Manual) 1.40 H (0.00-0.30) K/uL Platelet Estimate Appears Adequate (Adequate) Sodium 137 (135-149) mmol/L Potassium 4.1 (3.6-5.1) mmol/L Chloride 104 (96-114) mmol/L Carbon Dioxide 27 (20-32) mmol/L Anion Gap 6 L (7-15) mEq/L BUN 28 (7-30) mg/dL Creatinine 0.7 (0.5-1.5) mg/dL Estimated Creat Clear 58.90 Estimated GFR 94 ml/min Glucose 121 H (60-115) mg/dL Calcium 8.9 (8.4-10.6) mg/dL Imaging Data CT Chest/Ab/Pelvis: Attestation: I have reviewed the pertinent imaging results. Radiologist's impression: Patient: [facility] Facility:?[facility] Patient ID:?[id number] Site Patient ID:?[id number]. Site :?[id number] Study:?CT-Chest/Abd/Pelvis 91CC ISOVUE 370-06/06/2025 11:33:38 PM Ordering Physician:Lupe Ayers Final Report: INDICATION: Trauma with left-sided chest and abdominal/flank pain. TECHNIQUE: CT chest, abdomen and pelvis acquired 91 cc Isovue 370 IV contrast. COMPARISON: None. FINDINGS: CHEST: Cardiovascular structures: No cardiomegaly or pericardial effusion. Main pulmonary artery normal in caliber. No thoracic aortic aneurysm. Mediastinum and feng: No suspicious lymphadenopathy. No pneumomediastinum. Lungs and pleura: No focal consolidation. No pleural effusion or pneumothorax. Patent central airways. Right lower lobe pulmonary nodule measuring 7 mm (series 3, image 72). Left lower lobe nodule measuring 4 mm (image 73). Additional scattered smaller bilateral pulmonary nodules. Right upper lobe cyst. Chest wall and axilla: No suspicious chest wall mass or fluid collection. Mildly prominent bilateral axillary lymph nodes do not meet size criteria for enlargement. Bones: Nondisplaced acute fracture of the left posterior 9th rib (series 2, image 73). ABDOMEN AND PELVIS: Liver: Unremarkable. Gallbladder and bile ducts: Unremarkable. Pancreas: Unremarkable. Spleen: Unremarkable. Adrenal glands: Unremarkable. Kidneys: Symmetric renal enhancement. No hydronephrosis or hydroureter. No obstructing calculi. GI tract: No bowel obstruction. Colonic diverticulosis without acute diverticulitis. Moderate stool burden. No CT evidence of acute appendicitis. Vascular structures: No abdominal aortic aneurysm. Grossly patent vasculature. Lymph nodes: Numerous prominent mesenteric lymph nodes. Numerous prominent retroperitoneal lymph nodes, none of which meet size criteria for enlargement. Peritoneum/Retroperitoneum/Abdominal Wall: Mild central mesenteric haziness/fat stranding. No ascites or pneumoperitoneum. Small fat containing left inguinal hernia. No acute abdominal wall abnormality. Pelvic Organs: Normal bladder. Unremarkable prostate and seminal vesicles. Bones and superficial soft tissues: Left posterior 9th rib fracture, as above. IMPRESSION: 1. Acute, nondisplaced fracture of the left posterior 9th rib. 2. Otherwise no acute intrathoracic or intra-abdominal/pelvic pathology. 3. Numerous mildly prominent mesenteric lymph nodes with mild central mesenteric haziness/fat stranding, nonspecific, but may be seen in the setting of sclerosing mesenteritis. 4. Colonic diverticulosis without acute diverticulitis. 5. Moderate stool burden. 6. Bilateral pulmonary nodules, largest within the right lower lobe measuring 7 mm. Recommend comparison with any prior intrathoracic imaging, if available, to assess for stability. Otherwise, recommend repeat CT chest in 6 months to assess for interval change. Please note that all CT scans at this facility use dose modulation, iterative reconstruction, and/or weight-based dosing when appropriate to reduce radiation dose to as low as reasonably achievable. Dictated by See Hoffmann MD @ 06/06/2025 11:43:29 PM (Electronic Signature) Discharge Plan Discharge Clinical Impression: Fall, Fracture of left ninth rib Patient Disposition: Home, Self-Care Condition: Stable Instructions: Rib Fracture (ED) Additional Instructions: Use splinting technique with coughing, movement or other activities that aggravate pain in this left rib. Use Tylenol 1000 mg twice daily during the day, can use Vicodin at bedtime to help you sleep; Vicodin does contain Tylenol so cannot use additional Tylenol at night. Once you do not need Vicodin for pain management in sleeping, can switch to a 1000 mg of Tylenol at night. If you have further concerns, developed cough for fever indicative of pneumonia as complication of rib fracture, have increasing shortness of breath or difficulty breathing, do need to be re-evaluated. You have been provided a copy of your CT report which did have some incidental findings like the pulmonary nodule, need to follow up with her primary care provider to discuss this further, do recommend follow-up within the next 1-2 weeks. If you need further narcotic pain pills, will need to contact your primary care provider. Activity Level: Activity as Tolerated Prescriptions: New hydrocodone-acetaminophen 5-325 mg tablet 1 tab PO HS PRN (Reason: pain) Qty: 7 0RF No Action diphenhydramine HCl [Benadryl Allergy] 25 mg tablet 25 mg PO QHS PRN lisinopril 10 mg tablet 10 mg PO QDAY rosuvastatin [Crestor] 10 mg tablet 10 mg PO QDAY aspirin [Adult Aspirin Regimen] 81 mg tablet,delayed release (DR/EC) 81 mg PO QDAY albuterol sulfate 90 mcg/actuation HFA aerosol inhaler 2 puff inhalation Q4-6H PRN (Reason: shortness of breath or wheezing) Qty: 8.5 0RF benzonatate 200 mg capsule 200 mg PO QHS PRN (Reason: cough) Qty: 14 0RF azithromycin 250 mg tablet See Rx Instructions PO .COMPLEX Qty: 6 0RF Rx Instructions: For 250 mg dose pack: take 500 mg today (day 1), then 250 mg for 4 days (days 2-5) PO Follow Up/Referrals: CEASAR WOOTEN DO [Primary Care Provider, Family Practice] Stand Alone Forms: Actions Info Instructions
--- NOTE | 2025-06-06 22:32 | CRLHL7_ITS ---
For Patients: As a result of the 21st Century Cures Act, medical imaging exams and procedure reports are released immediately into your electronic medical record. You may view this report before your referring provider. If you have questions, please contact your health care provider. INDICATION: Trauma with left-sided chest and abdominal/flank pain. TECHNIQUE: CT chest, abdomen and pelvis acquired 91 cc Isovue 370 IV contrast. COMPARISON: None. FINDINGS: CHEST: Cardiovascular structures: No cardiomegaly or pericardial effusion. Main pulmonary artery normal in caliber. No thoracic aortic aneurysm. Mediastinum and feng: No suspicious lymphadenopathy. No pneumomediastinum. Lungs and pleura: No focal consolidation. No pleural effusion or pneumothorax. Patent central airways. Right lower lobe pulmonary nodule measuring 7 mm (series 3, image 72). Left lower lobe nodule measuring 4 mm (image 73). Additional scattered smaller bilateral pulmonary nodules. Right upper lobe cyst. Chest wall and axilla: No suspicious chest wall mass or fluid collection. Mildly prominent bilateral axillary lymph nodes do not meet size criteria for enlargement. Bones: Nondisplaced acute fracture of the left posterior 9th rib (series 2, image 73). ABDOMEN AND PELVIS: Liver: Unremarkable. Gallbladder and bile ducts: Unremarkable. Pancreas: Unremarkable. Spleen: Unremarkable. Adrenal glands: Unremarkable. Kidneys: Symmetric renal enhancement. No hydronephrosis or hydroureter. No obstructing calculi. GI tract: No bowel obstruction. Colonic diverticulosis without acute diverticulitis. Moderate stool burden. No CT evidence of acute appendicitis. Vascular structures: No abdominal aortic aneurysm. Grossly patent vasculature. Lymph nodes: Numerous prominent mesenteric lymph nodes. Numerous prominent retroperitoneal lymph nodes, none of which meet size criteria for enlargement. Peritoneum/Retroperitoneum/Abdominal Wall: Mild central mesenteric haziness/fat stranding. No ascites or pneumoperitoneum. Small fat containing left inguinal hernia. No acute abdominal wall abnormality. Pelvic Organs: Normal bladder. Unremarkable prostate and seminal vesicles. Bones and superficial soft tissues: Left posterior 9th rib fracture, as above. IMPRESSION: 1. Acute, nondisplaced fracture of the left posterior 9th rib. 2. Otherwise no acute intrathoracic or intra-abdominal/pelvic pathology. 3. Numerous mildly prominent mesenteric lymph nodes with mild central mesenteric haziness/fat stranding, nonspecific, but may be seen in the setting of sclerosing mesenteritis. 4. Colonic diverticulosis without acute diverticulitis. 5. Moderate stool burden. 6. Bilateral pulmonary nodules, largest within the right lower lobe measuring 7 mm. Recommend comparison with any prior intrathoracic imaging, if available, to assess for stability. Otherwise, recommend repeat CT chest in 6 months to assess for interval change. Please note that all CT scans at this facility use dose modulation, iterative reconstruction, and/or weight-based dosing when appropriate to reduce radiation dose to as low as reasonably achievable. Dictated by See Hoffmann MD @ 06/06/2025 11:43:29 PM (Electronically Signed)
[2025-06-06 22:46] VITALS: O2SAT 97
[2025-06-06 22:49] VITALS: BP 165/89; PULSE 68; RESP 18; O2SAT 97
[2025-06-06 22:56] LABS: Hematocrit* 40.2 % (37.0-53.0); Hemoglobin* 13.6 gm/dL (13.5-17.5); Mean Corpuscular HGB Conc 34 gm/dL (32-36); Mean Corpuscular Hemoglobin 31 pg (26-34); Mean Corpuscular Volume 93 fL (80-100); RDW Coefficient of Variation % 13.7 % (11.5-15.5); Red Blood Count* 4.33 m/uL (4.30-5.90)
[2025-06-06 22:57] LABS: White Blood Count* 67.88 K/uL (4.50-11.00)
[2025-06-06 22:59] LABS: Slide Review Reflex Req Man Differential
[2025-06-06 23:03] LABS: Total Cells Counted 100
[2025-06-06 23:04] LABS: Chloride* 104 mmol/L (96-114)
[2025-06-06 23:05] LABS: Potassium* 4.1 mmol/L (3.6-5.1); Sodium* 137 mmol/L (135-149)
[2025-06-06 23:07] LABS: Blood Urea Nitrogen* 28 mg/dL (7-30); Creatinine* 0.7 mg/dL (0.5-1.5); Est. Creatinine Clearance* 58.90; Estimated Glomerular Filt Rate 94 ml/min
[2025-06-06 23:08] LABS: Anion Gap 6 mEq/L (7-15); Calcium* 8.9 mg/dL (8.4-10.6); Carbon Dioxide* 27 mmol/L (20-32); Glucose* 121 mg/dL (60-115)
[2025-06-06 23:14] LABS: Basophils Abs Manual 1.40 K/uL (0.00-0.30); Basophils Percent Manual 2.0 % (0.0-3.0); Eosinophils Absolute Manual 1.40 K/uL (0.00-0.50); Eosinophils Percent Manual 2.0 % (0.0-7.0); Monocytes Absolute Manual 11.50 K/uL (0.00-0.90); Monocytes Percent Manual 17.0 % (0-11); Neutrophils Absolute Manual 6.10 K/uL (1.70-7.00); Neutrophils Percent Manual 9.0 % (42.0-72.0)
[2025-06-06 23:15] LABS: Lymphocytes Absolute Manual 47.50 K/uL (0.90-2.90); Lymphocytes Percent Manual 70.0 % (20.0-44.0)
[2025-06-07] MEDS: HYDROCODONE-ACETAMIN 5-325 MG 1 TAB PO (00:27)
== END 2025-06-07 00:32 | disposition home or self-care (01) ==
PROVIDERS: Emergency Provider Family Medicine; PCP Student in an Organized Health Care Education/Training Program
DX: S22.32XA Fracture of one rib, left side, initial encounter for closed fracture (principal); R91.8 Other nonspecific abnormal finding of lung field; C91.10 Chronic lymphocytic leukemia of B-cell type not having achieved remission; Z79.01 Long term (current) use of anticoagulants; W00.0XXA Fall on same level due to ice and snow, initial encounter; Y93.K1 Activity, walking an animal
CPT/HCPCS: 36415; 71260; 74177; 80048; 85025; 94761; 99284; 99285; A9270; Q9967